=== PATIENT | female | born 1960 | race Caucasian/White ===

== ENCOUNTER 2017-10-31 21:50 | Emergency (ER) | payer OTHER ==
[~2017-10-31] VITALS: Ht 165.1 cm; Wt 81.6 kg
[2017-11-01] MEDS ORDERED: KETO10TA2 PO (01:52)
[2017-11-01] MEDS ORDERED: DUI500 PO (01:52)
[2017-11-01] MEDS ORDERED: MUPIROCIN22 GM TOP (01:52)
== END 2017-11-01 02:11 | disposition home or self-care (01) ==
LOC: ER 21:50
DX: S43.084A Other dislocation of right shoulder joint, initial encounter (principal); W18.09XA Striking against other object with subsequent fall, initial encounter; Y93.89 Activity, other specified; Y92.018 Other place in single-family (private) house as the place of occurrence of the external cause; Y99.8 Other external cause status

== ENCOUNTER 2017-11-07 14:13 | Outpatient (CLI) | payer OTHER ==
[~2017-11-07 14:13] MED LIST: DUI500 PO; KETO10TA2 PO; MUPIROCIN22 GM TOP
== END 2017-11-07 14:21 | disposition home or self-care (01) ==
LOC: TOM 14:13
DX: S43.015D Anterior dislocation of left humerus, subsequent encounter (principal)

== ENCOUNTER 2018-06-09 11:04 | Outpatient (CLI) | payer OTHER ==
[2018-06-09] MEDS ORDERED: ASPIR 8181 MG PO (14:56)
[2018-06-09] MEDS ORDERED: COZAAR25 MG PO (14:57)
[2018-06-09] MEDS ORDERED: NORFLEX100MG PO (14:57)
[2018-06-09] MEDS ORDERED: CRESTOR20 MG PO (14:57)
[2018-06-09] MEDS ORDERED: MULTI VITAMIN1 EACH PO (14:57)
[2018-06-09] MEDS ORDERED: CYMBALTA60 MG PO (14:58)
== END 2018-06-09 15:00 | disposition home or self-care (01) ==
LOC: LAB 11:04
DX: D64.89 Other specified anemias (principal); D68.8 Other specified coagulation defects; E88.89 Other specified metabolic disorders; N39.0 Urinary tract infection, site not specified; Z22.322 Carrier or suspected carrier of Methicillin resistant Staphylococcus aureus; B99.8 Other infectious disease; I49.8 Other specified cardiac arrhythmias; Z76.89 Persons encountering health services in other specified circumstances

== ENCOUNTER → 2018-06-27 | Day surgery (SDC) | payer OTHER ==
[~2018-06-27] MED LIST changes: +ASPIR 8181 MG PO; +COZAAR25 MG PO; +CRESTOR20 MG PO; +CYMBALTA60 MG PO; +MULTI VITAMIN1 EACH PO; +NORFLEX100MG PO
== END | disposition home or self-care (01) ==
LOC: ADM 06-25 15:30 → CIR.AMB 07:00
DX: M75.121 Complete rotator cuff tear or rupture of right shoulder, not specified as traumatic (principal); M19.011 Primary osteoarthritis, right shoulder; M65.811 Other synovitis and tenosynovitis, right shoulder

== ENCOUNTER 2018-10-15 12:33 | Outpatient (CLI) | payer OTHER | END 2018-10-15 12:39 | disposition home or self-care (01) | LOC: LAB 12:33 | DX: D64.89 Other specified anemias (principal); M06.4 Inflammatory polyarthropathy ==

== ENCOUNTER 2021-12-05 13:51 | Outpatient (CLI) | payer OTHER | END 2021-12-05 14:10 | disposition home or self-care (01) | LOC: MRI 13:51 | PROVIDERS: ATTEND Physical Medicine & Rehabilitation | DX: M54.41 Lumbago with sciatica, right side (principal) | CPT/HCPCS: 72148 ==

== ENCOUNTER 2022-01-05 10:56 | Outpatient (CLI) | payer OTHER | END 2022-01-05 11:13 | disposition home or self-care (01) | LOC: MRI 10:56 | PROVIDERS: ATTEND Anesthesiology Pain Medicine | DX: M50.123 Cervical disc disorder at C6-C7 level with radiculopathy (principal) | CPT/HCPCS: 72141 ==

== ENCOUNTER 2022-08-12 07:58 | Emergency (ER) | payer OTHER ==
[~2022-08-12] VITALS: Ht 165.1 cm; Wt 80.7 kg
[2022-08-12] MEDS ORDERED: GABAPENTIN400 MG PO (08:12)
[2022-08-12] MEDS ORDERED: ATACAND4 MG PO (08:12)
== END 2022-08-12 12:12 | disposition home or self-care (01) ==
LOC: ER 07:58
DX: R10.11 Right upper quadrant pain (principal); K75.3 Granulomatous hepatitis, not elsewhere classified